=== PATIENT | male | born 1995 | race African-American/Black ===

== ENCOUNTER 2016-07-22 23:12 | Emergency (ER) | payer BC ==
[~2016-07-22] VITALS: Ht 190.5 cm; Wt 106.4 kg
[~2016-07-22 23:12] MED LIST: Z.0.NO CURRENT MEDS
[2016-07-22 23:20] VITALS: BP 139/68; PULSE 101; RESP 18; TEMP 98.9; O2SAT 98
--- NOTE | 2016-07-23 00:12 | PD ---
HPI Chief Complaint: GI Complaint Time Seen by Provider: 00:05 Travel History International Travel<30 days: No Contact w/Intl Traveler<30days: No Traveled to known affect area: No History of Present Illness HPI The patient is a 21-year-old male who had nausea, vomiting and diarrhea for 2 days. He denies any blood in the stool or vomitus. He denies any fever. He states he probably got this from his 1.5-year-old son who had similar symptoms last week. He denies any recent foreign travel, well water ingestion, recent antibiotics, history of bowel problems like regional enteritis or ulcerative colitis. PFS Past Medical History Medical History: Denies Significant Hx Immunizations Current: No Tetanus Vaccination: Unknown Past Surgical History Surgical History: No Previous Surgery Social History Alcohol Use: No Tobacco Use: Yes (06/25 PPD ) Substance Use: No Allergies-Medications (Allergen,Severity, Reaction): Coded Allergies: No Known Allergies (Verified , 07/22/16) Reported Meds & Prescriptions Reported Meds & Active Scripts Active Phenergan (Promethazine HCl) 25 Mg Tab 25 Mg PO Q6H PRN Review of Systems Except as stated in HPI: all other systems reviewed are Neg Physical Exam Narrative GENERAL: The patient is alert, mildly dehydrated appearing, in no apparent distress. His vital signs show heart rate of 101 and blood pressure 139/68 but are otherwise normal. SKIN: Warm and dry. HEAD: Atraumatic. Normocephalic. EYES: Pupils equal and round. No scleral icterus. No injection or drainage. ENT: No nasal bleeding or discharge. Mucous membranes pink and moist. NECK: Trachea midline. No JVD. CARDIOVASCULAR: Regular rate and rhythm. No murmur appreciated. RESPIRATORY: No accessory muscle use. Clear to auscultation. Breath sounds equal bilaterally. GASTROINTESTINAL: Abdomen soft, non-tender, nondistended. Hepatic and splenic margins not palpable. No guarding or rebound is present. MUSCULOSKELETAL: No obvious deformities. No clubbing. No cyanosis. No edema. NEUROLOGICAL: Awake and alert. No obvious cranial nerve deficits. Motor grossly within normal limits. Normal speech. PSYCHIATRIC: Appropriate mood and affect; insight and judgment normal. Data Data Last Documented VS Vital Signs Date Time Temp Pulse Resp B/P Pulse Ox O2 Delivery O2 Flow Rate FiO2 07/22/16 23:20 98.9 101 18 139/68 98 Orders Ecg Monitoring (07/23/16 00:05) Promethazine Inj (Phenergan Inj) (07/23/16 00:30) MDM Medical Decision Making Medical Screen Exam Complete: Yes Emergency Medical Condition: Yes Medical Record Reviewed: Yes Differential Diagnosis Viral gastroenteritis, colitis, bacterial enteritis, dehydration Narrative Course The patient refused all lab work, IVs but did allow a shot of Phenergan. He states that all he wants is a note for work. It is now 0100 and the patient has successfully been drinking Gatorade. Impression: Viral gastroenteritis Plan: The patient will be given Phenergan and a note for work. He will stick with clear liquids today and return to work tomorrow. Diagnosis Primary Impression: Viral gastroenteritis Additional Instructions: Stick with clear liquids like Gatorade. Avoid fatty foods like fried chicken, hamburgers and guinean fries. Make sure you stay hydrated with clear liquids today and you'll feel better tomorrow, , and hopefully will be able to return to work. Take the Phenergan regularly, 1 tablet 4 times daily. Follow- up with a primary care physician next week if you continue to have problems. Med/Other Pt SpecificInfo: Prescription(s) given Scripts Promethazine (Phenergan)25 Mg Tab25 Mg PO Q6H PRN (Nausea/Vomiting) #30 TAB Ref 0 Prov:Connor Pruitt MD 07/23/16 Disposition: 01 DISCHARGE HOME Condition: Stable Connor Pruitt MD Jul 23, 2016 00:12
[2016-07-23] MEDS ORDERED: SODIUM CHLOR 0.9% 1000 ML INJ 1,000 ML IV SCH (00:15)
[2016-07-23] MEDS ORDERED: SODIUM CHLORIDE 0.9% FLUSH 5 ML FLUSH IVF PRN (00:15)
[2016-07-23] MEDS ORDERED: ONDANSETRON HCL 4 MG/2 ML VIAL IVP ONE (00:15)
[2016-07-23] MEDS ORDERED: PROMETHAZINE INJ 25 MG/ML VIAL IM ONE (00:30)
[2016-07-23] MEDS ORDERED: PROM25TA5 PO (00:33)
== END 2016-07-23 01:05 | disposition home or self-care (01) ==
LOC: PHED 23:12
DX: A08.4 Viral intestinal infection, unspecified (principal); F17.210 Nicotine dependence, cigarettes, uncomplicated
CPT/HCPCS: 96372; 99283; J2550

== ENCOUNTER 2016-10-23 22:07 | Emergency (ER) | payer BC ==
[~2016-10-23] VITALS: Ht 190.5 cm; Wt 110.0 kg
[~2016-10-23 22:07] MED LIST changes: +PROM25TA5 PO; -Z.0.NO CURRENT MEDS
[2016-10-23 22:10] VITALS: BP 151/96; PULSE 81; RESP 18; TEMP 98.6; O2SAT 97
[2016-10-23] MEDS ORDERED: AMOXICILLIN (TRIHYDRATE) 500 MG CAP PO ONE (22:30)
[2016-10-23] MEDS ORDERED: AMOX500T PO (22:33)
--- NOTE | 2016-10-23 22:34 | PD ---
HPI Chief Complaint: Cold / Flu Symptoms Time Seen by Provider: 22:25 Travel History International Travel<30 days: No Contact w/Intl Traveler<30days: No Traveled to known affect area: No History of Present Illness HPI This 21-year-old male is complaining of cough. His been sick since last night. He's had persistent hacking cough and bringing up a lot of green phlegm. He does not feel short of breath. He does not smoke has no history of asthma. PFSH Past Medical History Diminished Hearing: No Immunizations Current: Yes Tetanus Vaccination: Unknown Influenza Vaccination: No Social History Alcohol Use: No Tobacco Use: Yes (06/25 PPD ) Substance Use: No Allergies-Medications (Allergen,Severity, Reaction): Coded Allergies: No Known Allergies (Verified , 10/23/16) Reported Meds & Prescriptions Reported Meds & Active Scripts Active No Active Prescriptions or Reported Medications Review of Systems General / Constitutional: No: Fever, Chills Eyes: No: Diploplia HENT: No: Headaches, Vertigo Respiratory: No: Cough Gastrointestinal: No: Vomiting, Diarrhea Genitourinary: No: Frequency, Dysuria Musculoskeletal: No: Myalgias Physical Exam Narrative GENERAL: Well-developed female SKIN: Focused skin assessment warm/dry. HEAD: Atraumatic. Normocephalic. EYES: Pupils equal and round. No scleral icterus. No injection or drainage. ENT: No nasal bleeding or discharge. Mucous membranes pink and moist. NECK: Trachea midline. No JVD. CARDIOVASCULAR: Regular rate and rhythm. No murmur appreciated. RESPIRATORY: No accessory muscle use. There are scattered rhonchi. Breath sounds equal bilaterally. GASTROINTESTINAL: Abdomen soft, non-tender, nondistended. Hepatic and splenic margins not palpable. MUSCULOSKELETAL: No obvious deformities. No clubbing. No cyanosis. No edema. NEUROLOGICAL: Awake and alert. No obvious cranial nerve deficits. Motor grossly within normal limits. Normal speech. PSYCHIATRIC: Appropriate mood and affect; insight and judgment normal. Data Data Last Documented VS Vital Signs Date Time Temp Pulse Resp B/P Pulse Ox O2 Delivery O2 Flow Rate FiO2 10/23/16 22:21 81 18 97 Room Air 10/23/16 22:10 98.6 151/96 Orders Amoxicillin (Trimox) (10/23/16 22:30) [facility] [place] Medical Decision Making Medical Screen Exam Complete: Yes Emergency Medical Condition: Yes Medical Record Reviewed: Yes Differential Diagnosis Differential includes pneumonia, bronchitis Narrative Course Exam is more consistent with bronchitis but he does complain of cough productive of green phlegm. He has been placed on amoxicillin. Diagnosis Primary Impression: Acute bronchitis Qualified Code: J20.9 - Acute bronchitis, unspecified organism Scripts Amoxicillin 500 Mg [id number] Mg PO TID 10 Days Ref 0 Prov:Bean Kellogg MD 10/23/16 Disposition: 01 DISCHARGE HOME Condition: Stable Bean Kellogg MD October 23, 2016 22:33
[2016-10-23 22:52] VITALS: BP 140/76
== END 2016-10-23 22:54 | disposition home or self-care (01) ==
LOC: PHED 22:07
DX: J20.9 Acute bronchitis, unspecified (principal); F17.210 Nicotine dependence, cigarettes, uncomplicated
CPT/HCPCS: 99283

== ENCOUNTER 2016-11-03 18:44 | Emergency (ER) | payer BC ==
[~2016-11-03] VITALS: Ht 190.5 cm; Wt 114.0 kg
[~2016-11-03 18:44] MED LIST changes: +AMOX500T PO; -PROM25TA5 PO
[2016-11-03 18:46] VITALS: BP 132/67; PULSE 82; RESP 14; TEMP 98.4; O2SAT 97
[2016-11-03] MEDS ORDERED: SODIUM CHLOR 0.9% 1000 ML INJ 1,000 ML IV SCH (18:58)
[2016-11-03] MEDS ORDERED: SODIUM CHLORIDE 0.9% FLUSH 10 ML FLUSH IV FLUSH PRN (19:00)
[2016-11-03] MEDS ORDERED: ONDANSETRON HCL 4 MG/2 ML VIAL IVP ONE (19:00)
[2016-11-03 19:05] VITALS: BP 146/80; PULSE 65; RESP 16; O2SAT 95
--- NOTE | 2016-11-03 19:05 | PD ---
HPI Chief Complaint: GI Complaint Time Seen by Provider: 18:51 Travel History International Travel<30 days: No Contact w/Intl Traveler<30days: No Traveled to known affect area: No History of Present Illness HPI 21-year-old male here for evaluation of nausea, vomiting, and diarrhea. Symptoms of been going on for last 2 days and started after eating sushi 2 days ago. Patient ate [place] food this evening with worsening nausea. He denies abdominal pain. Emesis and bowel movements are nonbloody. No history of abdominal surgeries. No fevers or chills. PFSH Past Medical History Medical History: Denies Significant Hx Diminished Hearing: No Immunizations Current: Yes Tetanus Vaccination: Unknown Influenza Vaccination: No Past Surgical History Surgical History: No Previous Surgery Social History Alcohol Use: Yes (OCC) Tobacco Use: Yes (06/25 PPD ) Substance Use: No Allergies-Medications (Allergen,Severity, Reaction): Coded Allergies: No Known Allergies (Verified , 11/03/16) Reported Meds & Prescriptions Reported Meds & Active Scripts Active No Active Prescriptions or Reported Medications Review of Systems Except as stated in HPI: all other systems reviewed are Neg Physical Exam Narrative GENERAL: Well-developed, well-nourished, comfortable, no acute distress. SKIN: Focused skin assessment warm/dry. HEAD: Atraumatic. Normocephalic. EYES: Pupils equal and round. No scleral icterus. No injection or drainage. ENT: No nasal bleeding or discharge. Mucous membranes pink and moist. CARDIOVASCULAR: Regular rate and rhythm. No murmur appreciated. RESPIRATORY: No accessory muscle use. Clear to auscultation. Breath sounds equal bilaterally. GASTROINTESTINAL: Abdomen soft, non-tender, nondistended. Normal bowel sounds. MUSCULOSKELETAL: No obvious deformities. No clubbing. No cyanosis. No edema. NEUROLOGICAL: Awake and alert. No obvious cranial nerve deficits. Motor grossly within normal limits. Normal speech. PSYCHIATRIC: Appropriate mood and affect; insight and judgment normal. Data Data Last Documented VS Vital Signs Date Time Temp Pulse Resp B/P Pulse Ox O2 Delivery O2 Flow Rate FiO2 11/03/16 18:46 98.4 82 14 132/67 97 Orders Complete Blood Count With Diff (11/03/16 18:58) Comprehensive Metabolic Panel (11/03/16 18:58) Lipase (11/03/16 18:58) Iv Access Insert/Monitor (11/03/16 18:58) Ecg Monitoring (11/03/16 18:58) Oximetry (11/03/16 18:58) Ondansetron Inj (Zofran Inj) (11/03/16 19:00) Sodium Chlor 0.9% 1000 Ml Inj (Ns 1000 M (11/03/16 18:58) Sodium Chloride 0.9% Flush (Ns Flush) (11/03/16 19:00) Labs Laboratory Tests Test 11/03/16 19:30 White Blood Count 7.4 TH/MM3 Red Blood Count 5.53 MIL/MM3 Hemoglobin 14.9 GM/DL Hematocrit 44.6 % Mean Corpuscular Volume 80.8 FL Mean Corpuscular Hemoglobin 26.9 PG Mean Corpuscular Hemoglobin 33.3 % Concent Red Cell Distribution Width 12.6 % Platelet Count 244 TH/MM3 Mean Platelet Volume 8.3 FL Neutrophils (%) (Auto) 64.5 % Lymphocytes (%) (Auto) 23.5 % Monocytes (%) (Auto) 7.1 % Eosinophils (%) (Auto) 2.6 % Basophils (%) (Auto) 2.3 % Neutrophils # (Auto) 4.8 TH/MM3 Lymphocytes # (Auto) 1.7 TH/MM3 Monocytes # (Auto) 0.5 TH/MM3 Eosinophils # (Auto) 0.2 TH/MM3 Basophils # (Auto) 0.2 TH/MM3 CBC Comment DIFF FINAL Differential Comment Sodium Level 141 MEQ/L Potassium Level 3.9 MEQ/L Chloride Level 106 MEQ/L Carbon Dioxide Level 26.4 MEQ/L Anion Gap 9 MEQ/L Blood Urea Nitrogen 10 MG/DL Creatinine 1.30 MG/DL Estimat Glomerular Filtration 84 ML/MIN Rate Random Glucose 106 MG/DL Calcium Level 8.7 MG/DL Total Bilirubin 0.7 MG/DL Aspartate Amino Transf 37 U/L (AST/SGOT) Alanine Aminotransferase 46 U/L (ALT/SGPT) Alkaline Phosphatase 83 U/L Total Protein 7.7 GM/DL Albumin 3.7 GM/DL Lipase 82 U/L [facility] Medical Decision Making Medical Screen Exam Complete: Yes Emergency Medical Condition: Yes Medical Record Reviewed: Yes Differential Diagnosis Gastroenteritis, metabolic abnormality, acute intra-abdominal infectious process less likely Narrative Course Vital signs are within normal limits. CBC is unremarkable. CMP is unremarkable. Lipase is 82. Patient was given a liter of normal saline IV and antiemetics and is feeling better. He is resting comfortably. His abdominal exam is benign. There are no peritoneal signs. He is tolerating clear liquids here in the emergency department. He is likely suffering from gastroenteritis. He is stable for discharge home with outpatient follow-up with a primary care physician this week. He was informed on when to return to the emergency department. He verbalizes understanding and agreement with plan. Diagnosis Primary Impression: Gastroenteritis Referrals: Primary Care Physician 3 days Additional Instructions: Follow-up with a primary care physician this week. Return to the emergency department for worsening symptoms or any other concerns. Scripts Ondansetron Odt (Zofran Odt)4 Mg Tab4 Mg SL Q8HR PRN (Nausea/Vomiting) #15 TAB Ref 0 Prov:Rajeev Da Silva MD 11/03/16 Disposition: 01 DISCHARGE HOME Condition: Stable Rajeev Da Silva MD November 03, 2016 19:05
[2016-11-03 19:25] VITALS: RESP 16; O2SAT 98
[2016-11-03 19:50] LABS: AUTOMATED NEUTROPHIL # 4.8 TH/MM3 (1.8-7.7); BASOPHIL # 0.2 TH/MM3 (0-0.2); BASOPHIL % 2.3 % (0.0-2.0); EOSINOPHIL # 0.2 TH/MM3 (0-0.4); EOSINOPHIL % 2.6 % (0.0-4.0); HEMATOCRIT 44.6 % (39.0-51.0); HEMO FLAGS DIFF FINAL; LYMPH % 23.5 % (9.0-44.0); LYMPHOCYTE # 1.7 TH/MM3 (1.0-4.8); MEAN CELL VOLUME 80.8 FL (80.0-100.0); MEAN CORPUSCULAR HEMOGLOBIN 26.9 PG (27.0-34.0); MEAN CORPUSCULAR HGB CONC 33.3 % (32.0-36.0); MONO % 7.1 % (0.0-8.0); NEUT % 64.5 % (16.0-70.0); PLATELET COUNT 244 TH/MM3 (150-450); RED BLOOD COUNT 5.53 MIL/MM3 (4.50-5.90); RED CELL DISTRIBUTION WIDTH 12.6 % (11.6-17.2); WHITE BLOOD COUNT 7.4 TH/MM3 (4.0-11.0)
[2016-11-03 19:56] LABS: CHLORIDE 106 MEQ/L (98-107); POTASSIUM 3.9 MEQ/L (3.5-5.1); SODIUM (NA) 141 MEQ/L (136-145)
[2016-11-03 20:00] LABS: ANION GAP 9 MEQ/L (5-15); BICARBONATE 26.4 MEQ/L (21.0-32.0); BLOOD UREA NITROGEN 10 MG/DL (7-18)
[2016-11-03 20:02] LABS: ALT (GPT) 46 U/L (12-78); AST (GOT) 37 U/L (15-37)
[2016-11-03 20:03] LABS: GLOMERULAR FILTRATION RATE 84 ML/MIN (>89)
[2016-11-03 20:04] LABS: TOTAL BILIRUBIN ADULT 0.7 MG/DL (0.2-1.0)
[2016-11-03 20:05] LABS: ALKALINE PHOSPHATASE 83 U/L (45-117)
[2016-11-03] MEDS ORDERED: ZOFR4TAB3 SL (20:13)
[2016-11-03 20:35] VITALS: BP 149/64; PULSE 78; RESP 16; O2SAT 100
== END 2016-11-03 20:58 | disposition home or self-care (01) ==
LOC: PHED 18:44
DX: K52.9 Noninfective gastroenteritis and colitis, unspecified (principal); F17.200 Nicotine dependence, unspecified, uncomplicated
CPT/HCPCS: 80053; 83690; 85025; 96361; 96374; 99284; J2405; J7030